=== PATIENT | male | born 1965 | race Caucasian/White ===

== ENCOUNTER 2018-06-11 13:43 | Observation (INO) ==
[2018-06-11] MEDS ORDERED: Aspirin 81 MG TAB.CHEW PO ONE (14:03)
[2018-06-11] MEDS ORDERED: Isovue-370 500 ML INFUS..BTL IV ONE (14:03)
[2018-06-11] MEDS ORDERED: Nitroglycerin 0.4 MG TAB.SUBL SL ONE (14:03)
[2018-06-11 14:13] LABS: Basophils # 0.1 K/mcL (0.0-0.2); Basophils % 0.7 %; Eosinophils # 0.6 K/mcL (0.0-0.6); Eosinophils % 7.7 %; Hematocrit 45.7 % (37.5-50.1); Hemoglobin 15.5 g/dL (12.9-16.9); Immature Granulocytes % 0.3 % (0-4); Lymphocytes % 14.3 %; Mean Corpuscular HGB Conc 33.9 g/dL (31.6-35.5); Mean Corpuscular Volume 88.6 fL (83.0-100.0); Mean Platelet Volume 9.7 fL (9.4-12.4); Monocytes # 0.7 K/mcL (0.0-1.3); Monocytes % 9.8 %; Neutrophils # 4.8 K/mcL (1.6-8.9); Platelet Count 181 K/mcL (140-400); Red Blood Count 5.16 M/mcL (4.19-5.50); Red Cell Distribution Width 13.4 % (11.5-14.5); Segmented Neutrophils % 67.2 %
[2018-06-11 14:19] LABS: Prothrombin Time 11.4 Seconds (9.4-12.1)
[2018-06-11 14:22] LABS: Activated Partial Thrombo Time 31.4 Seconds (26.0-36.0)
--- NOTE | 2018-06-11 14:22 | Emergency Department Note ---
Disposition Clinical Impression: Elevated troponin, NASIR (acute kidney injury) Chest pain Qualifiers: Chest pain type: unspecified Qualified Code(s): R07.9 - Chest pain, unspecified Disposition: Admitted As Inpatient Condition: Good Referrals: NONE,PCP [Primary Care Provider] - Forms: ED Satisfaction Letter Time of Disposition: 17:35 Chest Pain HPI - General Chief Complaint: ED Chest Pain Stated Complaint: Abnormal blood work,CP Time Seen by Provider: 06/11/18 13:53 Source: patient Limitations: no limitations - History of Present Illness HPI Narrative: 53-year-old male with history of cholangiocarcinoma was following up with the cancer Center today and had lab work drawn. He was notified by the cancer Center to come to the emergency room due to abnormalities in his lab work; presents for elevated troponin. He was seen at the cancer center for follow-up of his cholangiocarcinoma for which he is currently finished treatment. He was describing symptoms of chronic nausea with intermittent vomiting. He also had intermittent chest pain with left arm pain. The chest pain happened without exertion and lasts for about 30 seconds. Severity scale (1-10): 7 - Related Data Home Medications Medication Instructions Recorded Confirmed Oxycodone HCl [Roxicodone 30] 60 - 90 mg PO Q6H PRN 01/01/18 06/11/18 Allopurinol [Zyloprim 100 MG] 100 mg PO BID PRN 01/07/18 06/11/18 Trazodone HCl 100 mg PO HS 06/11/18 06/11/18 Previous Rx's Medication Instructions Recorded Docusate Sodium [Stool Softener] 100 mg PO BID #120 capsule 12/13/16 Budesonide/Formoterol 160/4.5 2 puff IH BIDR #1 hfa.aer.ad 08/03/17 [Symbicort 160/4.5] Sennosides [Senokot] 8.6 mg PO BID #60 tablet 08/03/17 Ondansetron ODT [Zofran ODT] 8 mg SL Q8HR PRN #30 tab.rapdis 01/17/18 Lisinopril-HCTZ 10-12.5 [Prinzide 1 each PO DAILY #30 tablet 05/13/18 10-12.5] Tizanidine HCl [Zanaflex] 4 mg PO QID PRN #28 cap 05/13/18 Miscellaneous Medical Supply 1 each MC BID #1 unit 05/14/18 [Blood Pressure Cuff] Magnesium Oxide [Mag-Ox] 400 mg PO DAILY #30 tablet 06/11/18 Metoclopramide [Reglan] 10 mg PO QIDAC #28 tablet 06/11/18 Potassium Chloride 10 meq PO DAILY #30 tab.er.prt 06/11/18 amLODIPine [Norvasc] 5 mg PO DAILY #30 tablet 06/11/18 Allergies Allergy/AdvReac Type Severity Reaction Status Date / Time promethazine [From Phenergan] Allergy Rash Verified 06/11/18 13:47 vancomycin Allergy Rash Verified 06/11/18 13:47 hydrocodone AdvReac Itching Verified 06/11/18 13:47 morphine AdvReac Rash Verified 06/11/18 13:47 niacin AdvReac Hives Verified 06/11/18 13:47 Constitutional: Denies: fever, chills Cardiovascular: Reports: chest pain Gastrointestinal: Reports: abdominal pain (chronic), nausea (chronic), vomiting , constipation (chronic due to opiods). Denies: diarrhea Genitourinary: Denies: dysuria Musculoskeletal: Reports: back pain (chronic) Integumentary: Denies: rash, abrasion, lesions Neurological: Reports: headache Chest Pain PMH - Past Medical History Medical history: Reports: asthma, cancer, COPD, GERD, hypertension, liver disease Surgical history: Reports: other Psychiatric history: Reports: no psych history - Social History Smoking Status: Former smoker Alcohol use: Reports: none Drug use: Reports: none Physical Exam - General Limitations: no limitations General appearance: alert, in no apparent distress - Head Head exam: atraumatic, normocephalic, normal inspection - Eye Eye exam: Present: normal appearance - ENT ENT exam: mucous membranes moist - Neck Neck exam: Present: normal inspection - Chest Chest inspection: Present: normal inspection - Respiratory Respiratory exam: Present: normal lung sounds bilaterally - Cardiovascular Cardiovascular exam: Present: regular rate, normal rhythm, normal heart sounds - Abdominal Exam Abdominal exam: Present: soft, Non-Tender, scar (oblique well healed surgical scar in LLQ). Absent: tenderness, distention, guarding, rebound, rigidity - Extremities Exam Extremities exam: Present: other (posterior tibial pulses +2/4). Absent: pedal edema - Neurological Exam Neurological exam: Present: alert, oriented X3 - Psychiatric Psychiatric exam: Present: normal affect, normal mood - Skin Skin exam: Present: warm, dry, intact, normal color Course Vital Signs Temperature 98.6 F 06/11/18 13:46 Pulse Rate 85 06/11/18 13:46 Respiratory Rate 18 06/11/18 13:46 Blood Pressure 151/91 06/11/18 13:46 O2 Sat by Pulse Oximetry 96 06/11/18 13:46 Temperature 98.6 F 06/11/18 14:04 Pulse Rate 85 06/11/18 14:04 Respiratory Rate 18 06/11/18 14:04 Blood Pressure 151/91 06/11/18 14:04 O2 Sat by Pulse Oximetry 96 06/11/18 14:04 Oxygen Delivery Oxygen Delivery Room Air Chest Pain - MDM Narrative Medical decision making narrative: 53 yo male with chest pain and elevated troponin. HEART score of 5. Elevated creatinine; NASIR vs CKD stage 3 with NASIR. Elevated d dimer, but negative CT angio of chest. Will admit for chest pain rule out. Spoke to Dr. Ba, hospitalist, who accepts patient for admission. - Lab Data Result diagrams: 06/11/18 14:00 06/11/18 14:00 Lab Results 06/11/18 06/11/18 06/11/18 Range/Units 14:00 14:00 14:00 WBC (4.3-11.1) K/mcL RBC (4.19-5.50) M/mcL Hgb (12.9-16.9) g/dL Hct (37.5-50.1) % MCV (83.0-100.0) fL MCH (28.0-33.3) pg MCHC (31.6-35.5) g/dL RDW (11.5-14.5) % Plt Count (140-400) K/mcL MPV (9.4-12.4) fL Immature Gran % (0-4) % Seg Neutrophils % % Lymphocytes % % Monocytes % % Eosinophils % % Basophils % % Neutrophils # (1.6-8.9) K/mcL Lymphocytes # (0.6-4.6) K/mcL Monocytes # (0.0-1.3) K/mcL Eosinophils # (0.0-0.6) K/mcL Basophils # (0.0-0.2) K/mcL PT 11.4 (9.4-12.1) Seconds INR 1.0 APTT 31.4 (26.0-36.0) Seconds Sodium (136-145) mEq/L Potassium (3.5-5.1) mEq/L Chloride (98-107) mEq/L Carbon Dioxide (23-29) mEq/L BUN (6-20) mg/dL Creatinine (0.70-1.30) mg/dL Est GFR ( Amer) (> 60) Est GFR (Non-Af Amer) (> 60) BUN/Creatinine Ratio (6-26) Glucose (70-105) mg/dL Calculated Osmolality (280-300) Calcium (8.6-10.3) mg/dL Total Bilirubin 0.4 (0.3-1.0) mg/dL Direct Bilirubin 0.1 (0.0-0.2) mg/dL Indirect Bilirubin 0.3 (0.0-1.2) mg/dL AST 61 H (13-39) Units/L ALT 44 (7-52) Units/L Alkaline Phosphatase 77 (34-104) Units/L Troponin I (< 0.04) ng/mL B-Natriuretic Peptide 36 (Less than 100) pg/mL Serum Total Protein 7.8 (6.4-8.9) g/dL Albumin 4.2 (3.5-5.7) g/dL Globulin 3.6 H (2.4-3.5) g/dL Albumin/Globulin Ratio 1.2 (1.1-2.2) Lipase 5 L (11-82) Units/L 06/11/18 06/11/18 Range/Units 14:00 14:00 WBC 7.1 (4.3-11.1) K/mcL RBC 5.16 (4.19-5.50) M/mcL Hgb 15.5 (12.9-16.9) g/dL Hct 45.7 (37.5-50.1) % MCV 88.6 (83.0-100.0) fL MCH 30.0 (28.0-33.3) pg MCHC 33.9 (31.6-35.5) g/dL RDW 13.4 (11.5-14.5) % Plt Count 181 (140-400) K/mcL MPV 9.7 (9.4-12.4) fL Immature Gran % 0.3 (0-4) % Seg Neutrophils % 67.2 % Lymphocytes % 14.3 % Monocytes % 9.8 % Eosinophils % 7.7 % Basophils % 0.7 % Neutrophils # 4.8 (1.6-8.9) K/mcL Lymphocytes # 1.0 (0.6-4.6) K/mcL Monocytes # 0.7 (0.0-1.3) K/mcL Eosinophils # 0.6 (0.0-0.6) K/mcL Basophils # 0.1 (0.0-0.2) K/mcL PT (9.4-12.1) Seconds INR APTT (26.0-36.0) Seconds Sodium 136 (136-145) mEq/L Potassium 4.4 (3.5-5.1) mEq/L Chloride 101 (98-107) mEq/L Carbon Dioxide 29 (23-29) mEq/L BUN 21 H (6-20) mg/dL Creatinine 1.66 H (0.70-1.30) mg/dL Est GFR ( Amer) 53 L (> 60) Est GFR (Non-Af Amer) 44 L (> 60) BUN/Creatinine Ratio 13 (6-26) Glucose 134 H (70-105) mg/dL Calculated Osmolality 287 (280-300) Calcium 10.1 (8.6-10.3) mg/dL Total Bilirubin (0.3-1.0) mg/dL Direct Bilirubin (0.0-0.2) mg/dL Indirect Bilirubin (0.0-1.2) mg/dL AST (13-39) Units/L ALT (7-52) Units/L Alkaline Phosphatase (34-104) Units/L Troponin I 0.04 H* (< 0.04) ng/mL B-Natriuretic Peptide (Less than 100) pg/mL Serum Total Protein (6.4-8.9) g/dL Albumin (3.5-5.7) g/dL Globulin (2.4-3.5) g/dL Albumin/Globulin Ratio (1.1-2.2) Lipase (11-82) Units/L - EKG Data EKG attestation: Yes I reviewed and interpreted this EKG. EKG shows normal: sinus rhythm, axis, intervals, QRS complexes, ST-T waves Rhythm: NSR [place]/QRS: normal Heart Score - Score History: Moderately Suspicious EKG: Normal Age: 45-65 Risk Factors: Equal/Greater than 3 risk factor or history of atherosclerotic disease Troponin: 1-3x normal limit HEART Score Total: 5
[2018-06-11 14:37] LABS: Albumin 4.2 g/dL (3.5-5.7); Albumin/Globulin Ratio 1.2 (1.1-2.2); Bilirubin,Direct 0.1 mg/dL (0.0-0.2); Bilirubin,Indirect 0.3 mg/dL (0.0-1.2); Bilirubin,Total 0.4 mg/dL (0.3-1.0); Globulin 3.6 g/dL (2.4-3.5); Total Protein 7.8 g/dL (6.4-8.9)
[2018-06-11 14:38] LABS: Calcium 10.1 mg/dL (8.6-10.3); Potassium 4.4 mEq/L (3.5-5.1)
[2018-06-11 14:43] LABS: Troponin I 0.04 ng/mL (< 0.04)
--- NOTE | 2018-06-11 15:03 | Emergency Department Note ---
Disposition Clinical Impression: Elevated troponin Disposition: Admitted As Inpatient Forms: ED Satisfaction Letter General Adult HPI - General Chief complaint: ED Chest Pain Stated complaint: Abnormal blood work,CP Time Seen by Provider: 06/11/18 13:53 Source: patient Limitations: no limitations - History of Present Illness Pain Scale: 7 - Related Data Home Medications Medication Instructions Recorded Confirmed Oxycodone HCl [Roxicodone 30] 60 - 90 mg PO Q6H PRN 01/01/18 06/11/18 Allopurinol [Zyloprim 100 MG] 100 mg PO BID PRN 01/07/18 06/11/18 Previous Rx's Medication Instructions Recorded Docusate Sodium [Stool Softener] 100 mg PO BID #120 capsule 12/13/16 Budesonide/Formoterol 160/4.5 2 puff IH BIDR #1 hfa.aer.ad 08/03/17 [Symbicort 160/4.5] Sennosides [Senokot] 8.6 mg PO BID #60 tablet 08/03/17 Ondansetron ODT [Zofran ODT] 8 mg SL Q8HR PRN #30 tab.rapdis 01/17/18 Cyclobenzaprine [Flexeril] 10 mg PO TID PRN #42 tablet 05/06/18 Lisinopril-HCTZ 10-12.5 [Prinzide 1 each PO DAILY #30 tablet 05/13/18 10-12.5] Ondansetron [Zofran ODT] 8 mg SL Q8HR PRN #30 tab.rapdis 05/13/18 Tizanidine HCl [Zanaflex] 4 mg PO QID PRN #28 cap 05/13/18 Miscellaneous Medical Supply 1 each MC BID #1 unit 05/14/18 [Blood Pressure Cuff] Magnesium Oxide [Mag-Ox] 400 mg PO DAILY #30 tablet 06/11/18 Metoclopramide [Reglan] 10 mg PO QIDAC #28 tablet 06/11/18 Potassium Chloride 10 meq PO DAILY #30 tab.er.prt 06/11/18 amLODIPine [Norvasc] 5 mg PO DAILY #30 tablet 06/11/18 Allergies Allergy/AdvReac Type Severity Reaction Status Date / Time promethazine [From Phenergan] Allergy Rash Verified 06/11/18 13:47 vancomycin Allergy Rash Verified 06/11/18 13:47 hydrocodone AdvReac Itching Verified 06/11/18 13:47 morphine AdvReac Rash Verified 06/11/18 13:47 niacin AdvReac Hives Verified 06/11/18 13:47 Past Medical History - Past Medical History Medical history: Reports: asthma, cancer, COPD, GERD, hypertension, liver disease Surgical history: Reports: other Psychiatric history: Reports: no psych history - Social History Smoking Status: Former smoker Smokeless Tobacco Status: No (chewing tobacco (snuff)) Alcohol use: Reports: none Drug use: Reports: none Physical Exam - General Limitations: no limitations General appearance: alert, in no apparent distress Course Vital Signs Temperature 98.6 F 06/11/18 13:46 Pulse Rate 85 06/11/18 13:46 Respiratory Rate 18 06/11/18 13:46 Blood Pressure 151/91 06/11/18 13:46 O2 Sat by Pulse Oximetry 96 06/11/18 13:46 Temperature 98.6 F 06/11/18 14:04 Pulse Rate 85 06/11/18 14:04 Respiratory Rate 18 06/11/18 14:04 Blood Pressure 151/91 06/11/18 14:04 O2 Sat by Pulse Oximetry 96 06/11/18 14:04 Oxygen Delivery Oxygen Delivery Room Air Medical Decision Making - Lab Data Result diagrams: 06/11/18 14:00 06/11/18 14:00 Lab Results 06/11/18 06/11/18 06/11/18 Range/Units 14:00 14:00 14:00 WBC (4.3-11.1) K/mcL RBC (4.19-5.50) M/mcL Hgb (12.9-16.9) g/dL Hct (37.5-50.1) % MCV (83.0-100.0) fL MCH (28.0-33.3) pg MCHC (31.6-35.5) g/dL RDW (11.5-14.5) % Plt Count (140-400) K/mcL MPV (9.4-12.4) fL Immature Gran % (0-4) % Seg Neutrophils % % Lymphocytes % % Monocytes % % Eosinophils % % Basophils % % Neutrophils # (1.6-8.9) K/mcL Lymphocytes # (0.6-4.6) K/mcL Monocytes # (0.0-1.3) K/mcL Eosinophils # (0.0-0.6) K/mcL Basophils # (0.0-0.2) K/mcL PT 11.4 (9.4-12.1) Seconds INR 1.0 APTT 31.4 (26.0-36.0) Seconds Sodium (136-145) mEq/L Potassium (3.5-5.1) mEq/L Chloride (98-107) mEq/L Carbon Dioxide (23-29) mEq/L BUN (6-20) mg/dL Creatinine (0.70-1.30) mg/dL Est GFR ( Amer) (> 60) Est GFR (Non-Af Amer) (> 60) BUN/Creatinine Ratio (6-26) Glucose (70-105) mg/dL Calculated Osmolality (280-300) Calcium (8.6-10.3) mg/dL Total Bilirubin 0.4 (0.3-1.0) mg/dL Direct Bilirubin 0.1 (0.0-0.2) mg/dL Indirect Bilirubin 0.3 (0.0-1.2) mg/dL AST 61 H (13-39) Units/L ALT 44 (7-52) Units/L Alkaline Phosphatase 77 (34-104) Units/L Troponin I (< 0.04) ng/mL B-Natriuretic Peptide 36 (Less than 100) pg/mL Serum Total Protein 7.8 (6.4-8.9) g/dL Albumin 4.2 (3.5-5.7) g/dL Globulin 3.6 H (2.4-3.5) g/dL Albumin/Globulin Ratio 1.2 (1.1-2.2) Lipase 5 L (11-82) Units/L 06/11/18 06/11/18 Range/Units 14:00 14:00 WBC 7.1 (4.3-11.1) K/mcL RBC 5.16 (4.19-5.50) M/mcL Hgb 15.5 (12.9-16.9) g/dL Hct 45.7 (37.5-50.1) % MCV 88.6 (83.0-100.0) fL MCH 30.0 (28.0-33.3) pg MCHC 33.9 (31.6-35.5) g/dL RDW 13.4 (11.5-14.5) % Plt Count 181 (140-400) K/mcL MPV 9.7 (9.4-12.4) fL Immature Gran % 0.3 (0-4) % Seg Neutrophils % 67.2 % Lymphocytes % 14.3 % Monocytes % 9.8 % Eosinophils % 7.7 % Basophils % 0.7 % Neutrophils # 4.8 (1.6-8.9) K/mcL Lymphocytes # 1.0 (0.6-4.6) K/mcL Monocytes # 0.7 (0.0-1.3) K/mcL Eosinophils # 0.6 (0.0-0.6) K/mcL Basophils # 0.1 (0.0-0.2) K/mcL PT (9.4-12.1) Seconds INR APTT (26.0-36.0) Seconds Sodium 136 (136-145) mEq/L Potassium 4.4 (3.5-5.1) mEq/L Chloride 101 (98-107) mEq/L Carbon Dioxide 29 (23-29) mEq/L BUN 21 H (6-20) mg/dL Creatinine 1.66 H (0.70-1.30) mg/dL Est GFR ( Amer) 53 L (> 60) Est GFR (Non-Af Amer) 44 L (> 60) BUN/Creatinine Ratio 13 (6-26) Glucose 134 H (70-105) mg/dL Calculated Osmolality 287 (280-300) Calcium 10.1 (8.6-10.3) mg/dL Total Bilirubin (0.3-1.0) mg/dL Direct Bilirubin (0.0-0.2) mg/dL Indirect Bilirubin (0.0-1.2) mg/dL AST (13-39) Units/L ALT (7-52) Units/L Alkaline Phosphatase (34-104) Units/L Troponin I 0.04 H* (< 0.04) ng/mL B-Natriuretic Peptide (Less than 100) pg/mL Serum Total Protein (6.4-8.9) g/dL Albumin (3.5-5.7) g/dL Globulin (2.4-3.5) g/dL Albumin/Globulin Ratio (1.1-2.2) Lipase (11-82) Units/L Attestation Statement - Attestation Attestation: I examined this patient and my medical decision-making was reviewed with the Resident Physician. I agree with the documented findings, disposition and treatment plan as described except to the extent set forth below. 53 year old male prsjose alfredo ot the ED after being seen by his oncologist today. 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 Shalini states that he also has COPD and has a chronic cough at beside. Shalini is chest pain free now and he had prelim labs and found to have an elevated troponin of 0.04 and it is still elevated. WE will also obtain a CTA chest to rule out PE and then admit to medicine.
[2018-06-11] MEDS ORDERED: *HR* FentaNYL (PF) 100 MCG/2 ML VIAL IVP ONE (15:36)
[2018-06-11] MEDS ORDERED: Naloxone 0.4 MG/ML INJ IVP PRN (17:54)
[2018-06-11] MEDS ORDERED: *HR* OxyCODONE Immed Rel 5 MG TABLET PO PRN (17:54)
[2018-06-11] MEDS ORDERED: *HR* HYDROcodone/Acet 5/325 mg TABLET PO PRN (17:54)
[2018-06-11] MEDS ORDERED: Acetaminophen 325 MG TABLET PO PRN (17:54)
--- NOTE | 2018-06-11 18:02 | Internal Med History&Physical ---
Date of Encounter: 06/11/18 Time of Encounter: 18:30 Internal Medicine - H&P: HPI Chief complaint: Chest pain Admitted From: Emergency Dept Plans for Post Hospital Care: Home History of present illness: Mr. Ordoñez is a 53 year old male patient with a history of hypertension, cholangiocarcinoma who was sent to the ER by his oncologist for abnormal labs and episodes of chest pain. Patient reports his been having intermittent left- sided chest pain for the past 2-3 days. It goes up to 7 out of 10 in severity and then improves spontaneously. He reports that the pain is on the left lateral side of his chest and radiates down his left arm. He has not had this kind of pain before. No relation to activity. No palpitations. He does have underlying COPD and gets short of breath occasionally for which he uses albuterol inhaler with improvement in his symptoms. He also has chronic abdominal pain related to his cholangiocarcinoma. Patient has previously completed surgery, chemoradiation for his cholangiocarcinoma 2 years back. Past Med Surg Social Fam HX - Past Medical History Medical history: asthma, cancer, COPD, GERD, hypertension, liver disease Psychiatric history: no psych history - Past Surgical History Surgical History: other Additional surgical history: LUMBAR FUSION, VOCAL CORD POLYP,liver bx, tonsillectomy,r ankle plates - Social History Smoking Status: Former smoker Smokeless Tobacco Status: No (chewing tobacco (snuff)) Alcohol use: none Drug use: none - Additional Family History Additional family history: Family history reviewed with patient and found to be noncontributory. Internal Medicine - H&P: Meds Docusate Sodium [Stool Softener] 100 mg PO BID #120 capsule 12/13/16 [Rx] Budesonide/Formoterol 160/4.5 [Symbicort 160/4.5] 2 puff IH BIDR #1 hfa.aer.ad 08/03/17 [Rx] Sennosides [Senokot] 8.6 mg PO BID #60 tablet 08/03/17 [Rx] Oxycodone HCl [Roxicodone 30] 60 - 90 mg PO Q6H PRN 01/01/18 [History] Allopurinol [Zyloprim 100 MG] 100 mg PO BID PRN 01/07/18 [History] Ondansetron ODT [Zofran ODT] 8 mg SL Q8HR PRN #30 tab.rapdis 03/29/18 [Rx] Lisinopril-HCTZ 10-12.5 [Prinzide 10-12.5] 1 each PO DAILY #30 tablet 05/13/18 [ Rx] Tizanidine HCl [Zanaflex] 4 mg PO QID PRN #28 cap 05/13/18 [Rx] Miscellaneous Medical Supply [Blood Pressure Cuff] 1 each MC BID #1 unit [Rx] Magnesium Oxide [Mag-Ox] 400 mg PO DAILY #30 tablet 06/11/18 [Rx] Metoclopramide [Reglan] 10 mg PO QIDAC #28 tablet 06/11/18 [Rx] Potassium Chloride 10 meq PO DAILY #30 tab.er.prt 06/11/18 [Rx] Trazodone HCl 100 mg PO HS 06/11/18 [History] amLODIPine [Norvasc] 5 mg PO DAILY #30 tablet 06/11/18 [Rx] 3 Allergy/AdvReac Type Severity Reaction Status Date / Time promethazine [From Phenergan] Allergy Rash Verified 06/11/18 13:47 vancomycin Allergy Rash Verified 06/11/18 13:47 hydrocodone AdvReac Itching Verified 06/11/18 13:47 morphine AdvReac Rash Verified 06/11/18 13:47 niacin AdvReac Hives Verified 06/11/18 13:47 All Systems PM: A 10-system review of systems was performed and is negative for pertinent findings except as documented above in the HPI. - Constitutional Constitutional: no chills, no fever(s), no night sweats - EENT Eyes: no change in vision, no discharge, no pain, no photophobia Ears: no ear discharge, no ear pain, no tinnitus Nose, mouth and throat: no dysphagia, no nasal discharge, no neck pain, no sore throat - Cardiovascular Cardiovascular ROS IM: chest pain, no diaphoresis, no dyspnea, no lightheadedness, no palpitations, no syncope - Respiratory Respiratory: dyspnea, no cough, no wheezing, no excessive phlegm production - Gastrointestinal Gastrointestinal: no abdominal pain, no diarrhea, no hematemesis, no hematochezia, no melena, no nausea, no vomiting - Musculoskeletal Musculoskeletal ROS IM: back pain, no numbness, no tingling - Integumentary Integumentary IM: no rash, no unusual bruising - Neurological Neurological ROS: no confusion, no convulsions, no focal weakness, no numbness, no tingling, no tremor(s) - Hematologic/Lymphatic Hematologic/Lymphatic: no easy bruising - Constitutional Vitals: Temp Pulse Resp BP Pulse Ox 98.6 F 69 18 139/86 98 06/11/18 14:04 06/11/18 17:10 06/11/18 17:10 06/11/18 17:10 06/11/18 17:10 General appearance: Present: cooperative, mild distress, A&O X 3, answers questions appropriately Exam: . - Neck Neck exam general surgery: Present: supple, trachea midline. Absent: lymphadenopathy - Respiratory Respiratory exam: Present: CTAB. Absent: accessory muscle use, rales, rhonchi, wheezes - Cardiovascular Cardiovascular exam: Present: RRR, +S1, +S2. Absent: diastolic murmur, gallop, rubs, systolic murmur - GI/Abdominal GI/Abdominal exam: Present: normal bowel sounds, soft, no peritoneal signs. Absent: distended, tenderness - Extremities Exam Extremities exam: Present: warm, radial pulses palpable and symmetrical. Absent : calf tenderness, cyanotic, pedal edema - Neurological Exam Neurological exam: Present: CN II-XII intact, oriented X3, no focal deficits. Absent: facial droop, speech deficit - Skin Skin exam: Present: dry, intact Internal Med - H&P Results - Labs CBC & Chem 7: 06/11/18 14:00 06/11/18 14:00 - EKG Data EKG shows normal: sinus rhythm - EKG Data Interpretation IM: normal EKG - Impressions Impressions Chest CTA 06/11/18 14:03 IMPRESSION: 1. No evidence for acute pulmonary embolism. 2. Inferior lingular consolidation at the left lung base representing atelectasis and/or pneumonia. D/ / Aidan Cortes MD / Aidan Cortes MD Interpreting Provider: Aidan Cortes MD Chest X-Ray 06/11/18 14:03 IMPRESSION: Mild left lung base atelectasis with no acute pneumonia. D/ / 06/11/2018 14:36:17 Bashir Mckeon MD / neeta Interpreting Provider: Bashir Mckeon MD - Assessment and plan (1) Chest pain Current Visit: Yes Status: Acute Assessment and plan: Patient with acute intermittent left-sided chest pain. Does have underlying hypertension. We will trend troponins. Monitor telemetry. Get 2-D echocardiogram. Nitro paste. Stress test in a.m. if troponins remain stable. Qualifiers: Chest pain type: precordial pain Qualified Code(s): R07.2 - Precordial pain (2) NASIR (acute kidney injury) Current Visit: Yes Status: Acute Assessment and plan: Patient has elevation in his creatinine. This appears to be going on over the past month. He also received contrast with CT. We will gently hydrate. Follow serum creatinine. If remains elevated, get renal ultrasound. (3) HTN (hypertension) Current Visit: Yes Status: Chronic Assessment and plan: Resume home medications. Monitor blood pressure. Qualifiers: Hypertension type: essential hypertension Qualified Code(s): I10 - Essential (primary) hypertension (4) Cholangiocarcinoma Current Visit: No Status: Chronic Assessment and plan: In remission. Follow up with oncology after discharge (5) Diabetes mellitus type II, controlled Current Visit: Yes Status: Chronic Assessment and plan: Monitor blood sugars. Sliding scale insulin. Diabetic diet. Qualifiers: Diabetes mellitus terminal clerk insulin use: without assisted use Diabetes mellitus complication status: with neurologic complications Diabetes mellitus complication detail: with autonomic neuropathy Qualified Code(s): E11.43 - Type 2 diabetes mellitus with diabetic autonomic (poly)neuropathy - Time Spent With Patient Total time spent is greater than 50% in coordination of care (as documented) at patient's floor/unit and/or counseling patient:
[2018-06-11] MEDS ORDERED: Nitroglycerin 0.4 MG PATCH.TD24 TD SCH (19:07)
[2018-06-11] MEDS ORDERED: tiZANidine 4 MG TABLET PO PRN (19:08)
[2018-06-11] MEDS ORDERED: Ipratropium/Albuterol Neb 3 ML IH PRN (19:13)
[2018-06-11] MEDS ORDERED: *HR* Dextrose 50 % in Water (Syg) 50 ML SYRINGE IVP PRN (19:23)
[2018-06-11] MEDS ORDERED: Dextrose Gel 15 GM/37.5 ML TUBE PO PRN ×2 (19:23)
[2018-06-11] MEDS ORDERED: D5% in Water 1,000 ML IVC PRN (19:23)
[2018-06-11] MEDS: Budesonide/Formoterol 160/4.5 1 PUFF INH IH SCH (19:40)
[2018-06-11] MEDS: *HR* OxyCODONE Immed Rel 15 MG TABLET PO PRN (20:00)
[2018-06-11] MEDS: Ringers Solution, Lactated 1,000 ML IVC SCH (20:07)
[2018-06-11] MEDS: Sennosides 8.6 MG TABLET PO SCH (20:09)
[2018-06-11] MEDS: Ondansetron ODT 4 MG TAB.RAPDIS SL PRN (20:21)
[2018-06-11] MEDS ORDERED: Insulin LISPRO 300 UNITS/3 ML VIAL SQ SCH (21:00)
[2018-06-11] MEDS ORDERED: traZODone 50 MG TABLET PO SCH (21:00)
[2018-06-12 01:54] LABS: Basophils # 0.1 K/mcL (0.0-0.2); Basophils % 0.7 %; Eosinophils # 0.4 K/mcL (0.0-0.6); Eosinophils % 5.8 %; Hematocrit 39.8 % (37.5-50.1); Immature Granulocytes % 0.3 % (0-4); Lymphocytes # 1.1 K/mcL (0.6-4.6); Lymphocytes % 15.2 %; Mean Corpuscular HGB Conc 34.4 g/dL (31.6-35.5); Mean Corpuscular Hemoglobin 29.9 pg (28.0-33.3); Mean Corpuscular Volume 86.9 fL (83.0-100.0); Mean Platelet Volume 9.7 fL (9.4-12.4); Monocytes # 0.9 K/mcL (0.0-1.3); Monocytes % 12.4 %; Neutrophils # 4.8 K/mcL (1.6-8.9); Platelet Count 164 K/mcL (140-400); Red Blood Count 4.58 M/mcL (4.19-5.50); Red Cell Distribution Width 13.4 % (11.5-14.5); Segmented Neutrophils % 65.6 %
[2018-06-12 01:58] LABS: Hemoglobin 13.7 g/dL (12.9-16.9)
[2018-06-12 02:12] LABS: Calcium 9.1 mg/dL (8.6-10.3); Chol/HDL Ratio 6.4 (0-4.9); Potassium 4.5 mEq/L (3.5-5.1)
[2018-06-12] MEDS ORDERED: Regadenoson 0.4 MG/5 ML SYRINGE IVP ONE (05:39)
[2018-06-12] MEDS ORDERED: *HR* Heparin 5,000 UNIT/ML VIAL SQ SCH (06:00)
[2018-06-12] MEDS ORDERED: Insulin LISPRO 300 UNITS/3 ML VIAL SQ SCH (07:30)
[2018-06-12] MEDS: Sennosides 8.6 MG TABLET PO SCH (08:59)
[2018-06-12] MEDS ORDERED: Magnesium Oxide 400 MG TABLET PO SCH (09:00)
[2018-06-12] MEDS ORDERED: amLODIPine 5 MG TABLET PO SCH (09:00)
[2018-06-12] MEDS: *HR* OxyCODONE Immed Rel 15 MG TABLET PO PRN (09:04)
[2018-06-12 09:11] VITALS: BP 132/87
[2018-06-12] MEDS: Budesonide/Formoterol 160/4.5 1 PUFF INH IH SCH (09:59)
[2018-06-12] MEDS: Ringers Solution, Lactated 1,000 ML IVC SCH (10:51)
[2018-06-12] MEDS ORDERED: *HR* OxyCODONE Immed Rel 15 MG TABLET PO PRN (10:59)
[2018-06-12] MEDS ORDERED: *HR* OxyCODONE Immed Rel 15 MG TABLET PO ONE (10:59)
[2018-06-12] MEDS: Ondansetron ODT 4 MG TAB.RAPDIS SL PRN (11:12)
--- NOTE | 2018-06-12 12:14 | Discharge Summary ---
- NOTES TO OUTPATIENT PROVIDER Notes to Outpatient Provider: Recommend repeat BMP within 1 week to monitor renal function Orders not resulted at time of discharge: Pending orders 06/11/18 19:07 NM chapo perf SPECT multi [NM] Routine Date of Encounter: 06/12/18 Time of Encounter: 12:11 - Discharge Diagnosis (1) Chest pain Priority: Primary Status: Acute Qualifiers: Chest pain type: precordial pain Qualified Code(s): R07.2 - Precordial pain (2) NASIR (acute kidney injury) Priority: Primary Status: Acute (3) Cholangiocarcinoma Priority: Secondary Status: Chronic (4) Diabetes mellitus type II, controlled Priority: Secondary Status: Chronic Qualifiers: Diabetes mellitus skilled nursing insulin use: without local intermodal truck driver use Diabetes mellitus complication status: with neurologic complications Diabetes mellitus complication detail: with autonomic neuropathy Qualified Code(s): E11.43 - Type 2 diabetes mellitus with diabetic autonomic (poly)neuropathy (5) HTN (hypertension) Priority: Secondary Status: Chronic Qualifiers: Hypertension type: essential hypertension Qualified Code(s): I10 - Essential (primary) hypertension Hospital course: Mr. Ordoñez is a 53 year old male patient with a history of hypertension and cholangiocarcinoma presented to [facility] on 06/11/2018 from his oncologist office for elevated troponin and complaints of chest pain. He was placed in observation status for further workup and treatment. Troponin peaked at 0.05 and trended down. He had a stress test which was negative for ischemia or infarct. Echocardiogram was pending at time of discharge; of note patient did not want to wait for final results. Suspect chest pain was secondary to musculoskeletal source as patient reports having home remodeling/ renovation done has been doing more physical exertion than normal. He had no chest pain or shortness of breath recurrence during his hospitalization and denied chest pain at discharge. He was also found to be in acute kidney injury which likely was secondary to dehydration and poor PO intake. Renal function improved at time of discharge. He was advised to maintain adequate hydration. He returned to baseline at discharge and had no complaints. Advised return to ER if chest pain/SOB recurs. Recommend follow-up with PCP within one week for repeat BMP to monitor renal function. Discharge discussed with: patient - Time Spent with Patient Total time spent providing and/or coordinating discharge services: - Discharge Medications Home Medications: Docusate Sodium [Stool Softener] 100 mg PO BID #120 capsule 12/13/16 [Rx] Budesonide/Formoterol 160/4.5 [Symbicort 160/4.5] 2 puff IH BIDR #1 hfa.aer.ad 08/03/17 [Rx] Sennosides [Senokot] 8.6 mg PO BID #60 tablet 08/03/17 [Rx] Oxycodone HCl [Roxicodone 30] 60 - 90 mg PO Q6H PRN 01/01/18 [History] Allopurinol [Zyloprim 100 MG] 100 mg PO BID PRN 01/07/18 [History] Ondansetron ODT [Zofran ODT] 8 mg SL Q8HR PRN #30 tab.rapdis 01/17/18 [Rx] Lisinopril-HCTZ 10-12.5 [Prinzide 10-12.5] 1 each PO DAILY #30 tablet 05/13/18 [ Rx] Tizanidine HCl [Zanaflex] 4 mg PO QID PRN #28 cap 05/13/18 [Rx] Miscellaneous Medical Supply [Blood Pressure Cuff] 1 each MC BID #1 unit [Rx] Magnesium Oxide [Mag-Ox] 400 mg PO DAILY #30 tablet 06/11/18 [Rx] Metoclopramide [Reglan] 10 mg PO QIDAC #28 tablet 06/11/18 [Rx] Potassium Chloride 10 meq PO DAILY #30 tab.er.prt 06/11/18 [Rx] Trazodone HCl 100 mg PO HS 06/11/18 [History] amLODIPine [Norvasc] 5 mg PO DAILY #30 tablet 06/11/18 [Rx] Allergies/Adverse Reactions: 3 Allergy/AdvReac Type Severity Reaction Status Date / Time promethazine [From Phenergan] Allergy Rash Verified 06/11/18 13:47 vancomycin Allergy Rash Verified 06/11/18 13:47 hydrocodone AdvReac Itching Verified 06/11/18 13:47 morphine AdvReac Rash Verified 06/11/18 13:47 niacin AdvReac Hives Verified 06/11/18 13:47 Date of admission: 06/11/18 17:39 Primary care physician: PCP NONE Discharging clinician: Anastasiya Goff Anticipated date of discharge: 06/12/18 - Constitutional Vitals: Temp Pulse Resp BP Pulse Ox 97.8 F 59 16 132/87 95 06/12/18 06:44 06/12/18 06:44 06/12/18 09:59 06/12/18 09:10 06/12/18 09:59 General appearance: Present: cooperative, mild distress, A&O X 3, answers questions appropriately Exam: see below - Head Head exam: Present: atraumatic, normocephalic - Eye Eye exam: Present: PERRL, conjuntiva pink, sclera anicteric Pupils: Present: PERRL - Neck Neck exam general surgery: Present: supple, trachea midline. Absent: lymphadenopathy - Respiratory Respiratory exam: Present: CTAB. Absent: accessory muscle use, rales, rhonchi, wheezes - Cardiovascular Cardiovascular exam: Present: RRR, +S1, +S2. Absent: diastolic murmur, gallop, rubs, systolic murmur - GI/Abdominal GI/Abdominal exam: Present: normal bowel sounds, soft, no peritoneal signs. Absent: distended, tenderness - Extremities Exam Extremities exam: Present: warm, radial pulses palpable and symmetrical. Absent : calf tenderness, cyanotic, pedal edema - Neurological Exam Neurological exam: Present: CN II-XII intact, oriented X3, no focal deficits. Absent: pronater drift, facial droop, speech deficit - Skin Skin exam: Present: dry, intact - Patient Status Disposition: Home, Self-Care Condition: Good Functional capacity at discharge: independent ambulation Overall status at discharge: patient is back to baseline - Discharge Instructions Instructions: Chest Pain (DC), Acute Kidney Injury (DC) Follow Up With: Rikki Ackerman MD [Partnered Physician] - 06/12/18 2:50 pm Alessia Bailey CNP [Advanced Practice Nurse] - 06/14/18 3:10 pm - Diet and Activity Activity: increase activity as tolerated Diet: advance to your usual diet
--- NOTE | 2018-06-12 17:22 | Electrocardiograph Report ---
[place] [employer] Test Date: 2018-06-11 Pat Name: Tripp Ordoñez Department: Room: 3B36 Gender: M Home Maker: : [id number] Requested By: Tamiko Deshpande Order Number: [id number] Reading MD: Jacob Fowler Measurements Intervals [place] Rate: 77 P: 68 ME: 151 QRS: 55 QRSD: 103 T: 56 QT: 365 QTc: 413 Interpretive Statements Sinus rhythm ST elev, probable normal early repol pattern Electronically Signed On 06-12-2018 17:20:29 EDT by Jacob Fowler
== END 2018-06-12 12:34 | disposition home or self-care (01) ==
LOC: EMEROOARM 13:43 → 3BNU 13:43
PROVIDERS: ADMIT Internal Medicine; ATTEND Internal Medicine